=== PATIENT | female | born 1950 | race Caucasian/White ===

== ENCOUNTER → 2018-04-20 | Outpatient (CLI) | payer MEDICARE ==
[2018-04-20 11:21] LABS: Basophils % (A) 1 %; Eosinophils # (A) 0.2 k/uL (0-0.7); Eosinophils % (A) 2 %; HCT 41.4 % (34.0-46.0); HGB 12.8 gm/dL (11.4-16.0); Hypochromasia Slight; Lymphocytes % (A) 15 %; MCH 26.1 pg (25.0-35.0); MCV 84.4 fL (80.0-100.0); Mean Platelet Volume 6.6; Monocytes # (A) 0.3 k/uL (0-1.0); Monocytes % (A) 4 %; Neutrophils # (A) 4.9 k/uL (1.3-7.7); Neutrophils % (A) 76 %; Platelet Count 256 k/uL (150-450); RBC 4.91 m/uL (3.80-5.40); RDW 15.2 % (11.5-15.5); WBC 6.5 k/uL (3.8-10.6)
[2018-04-20 11:41] LABS: Albumin 3.8 g/dL (3.5-5.0); Calcium 9.2 mg/dL (8.4-10.2); Potassium 4.3 mmol/L (3.5-5.1); Total Bilirubin 0.6 mg/dL (0.2-1.3); Total Protein 6.5 g/dL (6.3-8.2)
[2018-04-20 11:59] LABS: Appearance,Urine Cloudy (Clear); Bacteria,Urine Few /hpf; Bilirubin,Urine Negative (Negative); Blood,Urine Small (Negative); Color,Urine Yellow; Glucose,Urine (UA) Negative (Negative); Ketones,Urine Negative (Negative); Leukocyte Esterase,Urine Large (Negative); Mucus,Urine Occasional /hpf; Nitrite,Urine Negative (Negative); Protein,Urine 1+ (Negative); RBC,Urine 3 /hpf (0-5); Specific Gravity,Urine 1.011 (1.001-1.035); Squamous Epithelial Cell,Urine 8 /hpf (0-4); Urobilinogen,Urine <2.0 mg/dL (<2.0); WBC,Urine 169 /hpf (0-5)
--- NOTE | 2018-04-20 14:10 | XR ---
EXAMINATION TYPE: XR chest 2V DATE OF EXAM: 04/20/2018 COMPARISON: NONE HISTORY: Presurgical, Z01.818, COPD and CHF TECHNIQUE: Frontal and lateral views of the chest are obtained. FINDINGS: Prominent lung volume could be indicative of COPD. Patient is rotated, no evident airspace disease, pneumothorax, or pleural effusion. Suspect prominent epicardial fat pad. Thoracic spondylos is noted. Aorta is dense. Cardiac mediastinal silhouette, pulmonary vascularity and jackelyn within ariella l limits accounting for technique. IMPRESSION: No acute cardiopulmonary process.
== END | disposition home or self-care (01) ==
LOC: LABPAT 10:20
PROVIDERS: ATTEND Urology
DX: Z01.818 Encounter for other preprocedural examination (principal); Z01.812 Encounter for preprocedural laboratory examination; N20.0 Calculus of kidney; R35.0 Frequency of micturition; I10 Essential (primary) hypertension; Z79.899 Other long term (current) drug therapy
CPT/HCPCS: 36415; 71046; 80053; 81001; 85025; 86850; 86900; 86901; 87086; 93005

== ENCOUNTER 2018-04-28 07:52 | Inpatient (IN) | payer MEDICARE ==
[2018-04-21 15:44] VITALS: BMI 68.2
--- NOTE | 2018-04-27 21:03 | P.GSHP ---
History of Present Illness H&P Date: 04/27/18 68 yo female with a staghorn calculus on the right and flank pain SHe comes for a right PCNL. The risks and compliations have been discussed. SHe comes for this procedure. Her urine cultures have been negative. - Constitutional Constitutional: Reports anorexia, Reports chronic headaches, Reports chronic pain Past Medical History Past Medical History: Asthma, COPD, GERD/Reflux, Hypertension, Myocardial Infarction ([place]), Osteoarthritis (OA) Additional Past Medical History / Comment(s): hx migraines, TIA 2004- no effects , hiatal hernia, recent diverticulitis, kidney stones, neuropathy xiomara legs, Last Myocardial Infarction Date:: 2008 History of Any Multi-Drug Resistant Organisms: MRSA Date of last positivie culture/infection: 2010 MDRO Source:: cysts on buttocks Past Surgical History: Appendectomy, Cholecystectomy, Heart Catheterization, Joint Replacement, Tubal Ligation Additional Past Surgical History / Comment(s): lithotripsy, cystoscopy, xiomara knee replacements Past Anesthesia/Blood Transfusion Reactions: Motion Sickness, Postoperative Nausea & Vomiting (PONV) Smoking Status: Former smoker - Past Family History Sister(s) Family Medical History: Cancer, Pulmonary Embolus Mother Family Medical History: Pulmonary Embolus Medications and Allergies Home Medications Medication Instructions Recorded Confirmed Type Acetaminophen [Tylenol Arthritis] 1,300 mg PO DIRECTED PRN 04/21/18 04/21/18 History Albuterol Sulfate [Proair 2 puff PO Q6HR PRN 04/21/18 04/21/18 History Respiclick] Aspirin [Adult Low Dose Aspirin EC] 81 mg PO BID 04/21/18 04/21/18 History Carboxymethyl/Gly/Poly80/Pf 2 dropper BOTH EYES BID 04/21/18 04/21/18 History [Refresh Optive Brian-3 Drops] Cholecalciferol [Vitamin D3] 3,000 unit PO DAILY 04/21/18 04/21/18 History Ibuprofen [Motrin] 600 mg PO Q8HR PRN 04/21/18 04/21/18 History Losartan [Cozaar] 25 mg PO DAILY 04/21/18 04/21/18 History Omeprazole [PriLOSEC] 20 mg PO AC-BRKFST 04/21/18 04/21/18 History Sertraline HCl [Zoloft] 25 mg PO DAILY 04/21/18 04/21/18 History Torsemide [Demadex] 20 - 40 mg PO DAILY PRN 04/21/18 04/21/18 History Vits A,C,E/Lutein/Minerals 1 each PO BID 04/21/18 04/21/18 History [Ocuvite with Lutein Tablet] Allergies Allergy/AdvReac Type Severity Reaction Status Date / Time adhesive tape Allergy Rash/Hives Verified 04/21/18 15:44 atorvastatin [From Lipitor] Allergy severe Verified 04/21/18 15:29 cramping in lower legs lisinopril Allergy Cough Verified 04/21/18 15:29 Surgical - Exam - General well developed, well nourished, obese - Eyes PERRL - ENT no hearing loss - Neck trachea midline - Respiratory normal expansion, normal respiratory effort - Cardiovascular Rhythm: regular - Abdomen Abdomen: soft, non tender - Integumentary no rash, no growths - Neurologic normal coordination, normal sensation - Musculoskeletal normal gait, normal posture - Psychiatric oriented to time, oriented to person, oriented to place, speech is normal, memory intact Results - Imaging CT scan - abdomen: report reviewed, image reviewed CT scan - pelvis: report reviewed, image reviewed Assessment and Plan Assessment: Impression: Painful right staghorn calculous Plan: Right PCNL w cystoscopy and ureteral catheter placement
[~2018-04-28 07:52] MED LIST: DEXAMETHASONE SOD PHOSPHATE 10 MG/ML 1 ML VIAL IV ONE; LACTATED RINGERS 1,000 ML IV SCH; LIDOCAINE 1% 20 ML VIAL (10MG/ML) FOR IV START INTRADERMA PRN; MIDAZOLAM 2 MG/2 ML VIAL IV PRN; ONDANSETRON 4 MG/2 ML VIAL IVP ONE; ceFAZolin IN SWFI 2 GM/20 ML SYRINGE IVP ONE; fentaNYL (PF) 50 MCG/ML 2 ML AMP IV PRN; metroNIDAZOLE-NS PMX 500 MG in SALINE 1 100ML.BAG IVPB ONE
--- NOTE | 2018-04-28 08:12 | XR ---
EXAMINATION TYPE: XR KUB DATE OF EXAM: 04/28/2018 COMPARISON: None INDICATION: Kidney stones right TECHNIQUE: Single view abdomen frontal supine FINDINGS: There is a normal bowel gas pattern. Psoas margins are normal. No organomegaly is present. Surgical clips in the right upper quadrant from prior cholecystectomy. The right kidney shadow appear s unremarkable. No suspicious calcifications are identified. IMPRESSION: 1. Unremarkable Abdomen
[2018-04-28] MEDS: LACTATED RINGERS 1,000 ML IV SCH ×2 (09:53→16:37)
[2018-04-28] MEDS ORDERED: NEOSTIGMINE 1 MG/ML 10 ML VIAL ONE (10:12)
[2018-04-28] MEDS ORDERED: LIDOCAINE 1% INJ 10MG/ML (20 ML MDV) ONE (10:12)
[2018-04-28] MEDS ORDERED: MIDAZOLAM 2 MG/2 ML VIAL ONE (10:12)
[2018-04-28] MEDS ORDERED: SUCCINYLCHOLINE CHLORIDE VIAL 200 MG/10 ML VIAL IV ONE (10:12)
[2018-04-28] MEDS ORDERED: PROPOFOL 10 MG/ML 20 ML VIAL IV ONE (10:12)
[2018-04-28] MEDS ORDERED: GENTAMICIN 40 MG/ML 2 ML VIAL ONE (10:12)
[2018-04-28] MEDS ORDERED: GLYCOPYRROLATE 0.2 MG/ML 2 ML VIAL ONE (10:12)
[2018-04-28] MEDS ORDERED: ROCURONIUM BROMIDE 10 MG/ML 10 ML VIAL IV ONE (10:12)
[2018-04-28] MEDS ORDERED: LACTATED RINGERS 1,000 ML IV ONE (12:19)
[2018-04-28] MEDS ORDERED: TORSEMIDE 20 MG TAB PO PRN (12:28)
[2018-04-28] MEDS ORDERED: NON-FORMULARY DRUG (Acetaminophen [Tylenol Arthritis] 1,300 MG) PO PRN (12:28)
[2018-04-28] MEDS ORDERED: ALBUTEROL NEBULIZED 2.5 MG/3 ML INHALATION PRN (12:28)
[2018-04-28] MEDS ORDERED: ACETAMINOPHEN TAB 325 MG TAB PO PRN (12:29)
[2018-04-28] MEDS ORDERED: ONDANSETRON 4 MG/2 ML VIAL IVP PRN (12:29)
[2018-04-28] MEDS ORDERED: NALOXONE 0.4 MG/ML 1 ML VIAL IV PRN (12:31)
[2018-04-28] MEDS ORDERED: KETOROLAC 30 MG/ML 1 ML VIAL IVP PRN (12:31)
--- NOTE | 2018-04-28 12:37 | P.OP ---
Date of Procedure: 04/28/18 Preoperative Diagnosis: Staghorn calculus right Postoperative Diagnosis: Same Procedure(s) Performed: Cystoscopy, placement of right occluding balloon catheter 5-Lebanese, percutaneous nephrostomy (Dr. Nugent) percutaneous nephrostolithotomy, large with ultrasound and laser lithotripsy, placement of 10-Lebanese J nephrostomy Anesthesia: SASHA Surgeon: Thanh Walden Estimated Blood Loss (ml): 100 Pathology: other (Stone) Condition: stable Disposition: PACU Indications for Procedure: The patient is 68. She is morbidly obese attending a #3. She has a full branch staghorn calculus in the right kidney. He comes for removal. Urine cultures have been negative. Description of Procedure: The patient is brought to the operating suite. She is given a successful general endotracheal anesthesia on the transport gurney. Rolls were placed on her hips and she's placed in a frog position. Cystoscopy is performed. It is limited due to her size. The right ureteral orifice is identified and intubated with a 5-Lebanese occluding balloon catheter. There is cystitis cystica on the trigone. A Albarado catheter-is placed, 16-Lebanese and secured to the ureteral catheter The patient is then placed on the operating table in a prone position with a very care to her extremities airways and size. She is prepped and draped sterilely. Dr. Nugent performed percutaneous access to the right lower pole calyx. We dilate the tract to 30-Lebanese. I irrigate the collecting system thoroughly. I then introduced the ultrasonic wand and tediously break up the very large renal pelvic stone with its branches. It is very soft. I then pass the flexible cystoscope and each calyx and either break the stones up with the 350 laser probe or move the stones into the renal pelvis and in then remove the stones with the rigid scope. I do intraoperative urography as well as look into the collecting system with the flexible scope and see no remaining stones. A 10-Lebanese J nephrostomy is placed over the working wire. The patient is awakened and returned recovery room in good condition. Blood loss is approximately 100 mL. She'll be placed in the hospital postoperatively.
--- NOTE | 2018-04-28 12:47 | FL ---
EXAMINATION TYPE: FL Perc Nephrostomy New Access DATE OF EXAM: 04/28/2018 COMPARISON: NONE HISTORY: Partial staghorn calculus. PROCEDURE: Maximal barrier technique was utilized. The skin overlying the right kidney was localized using fluo roscopy and the overlying skin prepped and draped. Lidocaine used for local anesthesia. Skin maggi w as made with a scalpel. Access was gained under fluoroscopy, following placement of a ureteral occlu mervat balloon by the referring clinician and instillation of air in the renal collecting system with a 21-gauge needle to the lower pole of the right kidney. A suitable posterior calyx was chosen. A 0 .018 inch wire was advanced. The access site was dilated and subsequently a sheath was advanced into the renal pelvis following dilation with balloon along the tract. Urine returned in the hub of the c atheter. The patient underwent nephrolithotomy by the referring clinician. The patient remained in stable condition without complication. The patient was discharged to observation. 2 minutes 38 seconds fluoroscopy time, 3 intraoperative C-arm images document the procedure IMPRESSION: STATUS POST NEPHROSTOMY PLACEMENT FOR NEPHROLITHOTOMY WITH FLUOROSCOPIC GUIDANCE. THIS PROCEDURE PER FORMED BY THE UNDERSIGNED.
[2018-04-28] MEDS: HYDROmorphone PCA 5 MG/25 ML SYRINGE IV PRN (17:39)
[2018-04-28] MEDS: LEVOFLOXACIN 500 MG TAB PO SCH (18:04)
[2018-04-28] MEDS: DEXTROSE 5%-0.45% NACL 1,000 ML IV SCH ×2 (21:06→21:19)
[2018-04-28] MEDS ORDERED: SODIUM CHLORIDE 0.9% 500 ML IV ONE (23:49)
[2018-04-29] MEDS: MAG HYDROX/AL HYDROX/SIMETH 30 ML CUP PO PRN ×2 (04:04→12:45)
--- NOTE | 2018-04-29 06:47 | P.PN ---
Subjective Progress Note Date: 04/29/18 The patient is in her first postoperative day from a right percutaneous nephrostolithotomy to a full branch staghorn calculus. She did well overnight. Vital signs are stable. She has a moderate amount of pain. The urine is still somewhat bloody. She states that she is not ready to be discharged home. She will need to eat, dressed, move herself and have pain control before she is ready for discharge home. Next 24 hours. I'll continue supportive care. Objective - Vital Signs Vital signs: Vital Signs Temp 98.1 F 04/28/18 23:39 Pulse 64 04/28/18 23:39 Resp 16 04/28/18 23:39 BP 118/67 04/28/18 23:39 Pulse Ox 96 04/28/18 23:39 Intake & Output 04/28/18 04/28/18 04/29/18 06:59 18:59 06:59 Intake Total 1600 2100 Output Total 175 1200 Balance 1425 900 Weight 174.633 kg Intake: IV 1600 Intake, IV Titration 2100 Amount Dextrose 5%-0.45% NaCl 1, 1600 000 ml @ 100 mls/hr IV . Q10H [facility] [place] Rx#:[id number] Sodium Chloride 0.9% 500 500 ml @ 999 mls/hr IV .Q31M ONE Rx#:[id number] Output: Drainage 250 Right Posterior Hip 250 Urine 75 950 2-way Urethral 200 Estimated Blood Loss 100 Other: Voiding Method Indwelling Catheter Indwelling Catheter
[2018-04-29] MEDS: LACTATED RINGERS 1,000 ML IV SCH (08:02)
[2018-04-29] MEDS: LOSARTAN 25 MG TAB PO SCH (08:07)
[2018-04-29] MEDS: PANTOPRAZOLE 40 MG TABLET PO SCH (08:07)
[2018-04-29] MEDS: LEVOFLOXACIN 500 MG TAB PO SCH (08:07)
[2018-04-29] MEDS: SERTRALINE 25 MG TAB PO SCH (09:32)
[2018-04-29] MEDS: DEXTROSE 5%-0.45% NACL 1,000 ML IV SCH ×2 (12:45→19:30)
[2018-04-29 14:37] VITALS: RESP 16
[2018-04-29] MEDS ORDERED: CALCIUM CARBONATE 500 MG CHEWABLE PO PRN (20:56)
[2018-04-30] MEDS: HYDROmorphone PCA 5 MG/25 ML SYRINGE IV PRN (00:08)
[2018-04-30] MEDS: MAG HYDROX/AL HYDROX/SIMETH 30 ML CUP PO PRN (03:41)
[2018-04-30] MEDS: DEXTROSE 5%-0.45% NACL 1,000 ML IV SCH (03:43)
--- NOTE | 2018-04-30 07:28 | P.DS ---
Providers Date of admission: 04/28/18 07:52 Attending physician: Thanh Walden Primary care physician: Calin Mckee [facility] Course: the patient was admitted for removal of a full branched staghorn calculous in the right kidney She underwent a pcnl right successfully SHe has had an uneventful post op course Her pain is controlled The urine is clearing SHe is voiding. SHe will be discharged home with her ntube SHe will fu thursday for removal of the tube The stone report is pending condition is good Patient Condition at Discharge: Good Plan - Discharge Summary Discharge Rx Participant: No New Discharge Prescriptions: New HYDROcodone/APAP 5-325MG [[place] 5-325] 1 tab PO Q4HR PRN #14 tab PRN Reason: Pain Control Levofloxacin [Levaquin] 500 mg PO DAILY 3 Days #7 tab No Action Vits A,C,E/Lutein/Minerals [Ocuvite with Lutein Tablet] 1 tab PO BID Carboxymethyl/Gly/Poly80/Pf [Refresh Optive Brian-3 Drops] 2 drops BOTH EYES BID Cholecalciferol [Vitamin D3] 3,000 unit PO DAILY Albuterol Sulfate [Proair Respiclick] 2 puff INHALATION RT-Q6H PRN PRN Reason: Shortness Of Breath Torsemide [Demadex] 20 - 40 mg PO DAILY PRN PRN Reason: fluid retention Sertraline HCl [Zoloft] 25 mg PO DAILY Omeprazole [PriLOSEC] 20 mg PO AC-BRKFST Losartan [Cozaar] 25 mg PO DAILY Aspirin [Adult Low Dose Aspirin EC] 81 mg PO BID Ibuprofen [Motrin] 600 mg PO Q8HR PRN PRN Reason: Pain Acetaminophen [Tylenol Arthritis] 1,300 mg PO TID PRN PRN Reason: Pain Discharge Medication List Acetaminophen [Tylenol Arthritis] 1,300 mg PO TID PRN 04/21/18 [History] Albuterol Sulfate [Proair Respiclick] 2 puff INHALATION RT-Q6H PRN 04/21/18 [ History] Aspirin [Adult Low Dose Aspirin EC] 81 mg PO BID 04/21/18 [History] Carboxymethyl/Gly/Poly80/Pf [Refresh Optive Brian-3 Drops] 2 drops BOTH EYES BID 04/21/18 [History] Cholecalciferol [Vitamin D3] 3,000 unit PO DAILY 04/21/18 [History] Ibuprofen [Motrin] 600 mg PO Q8HR PRN 04/21/18 [History] Losartan [Cozaar] 25 mg PO DAILY 04/21/18 [History] Omeprazole [PriLOSEC] 20 mg PO AC-BRKFST 04/21/18 [History] Sertraline HCl [Zoloft] 25 mg PO DAILY 04/21/18 [History] Torsemide [Demadex] 20 - 40 mg PO DAILY PRN 04/21/18 [History] Vits A,C,E/Lutein/Minerals [Ocuvite with Lutein Tablet] 1 tab PO BID 04/21/18 [ History] HYDROcodone/APAP 5-325MG [[place] 5-325] 1 tab PO Q4HR PRN #14 tab 04/30/18 [Rx] Levofloxacin [Levaquin] 500 mg PO DAILY 3 Days #7 tab 04/30/18 [Rx] Follow up Appointment(s)/Referral(s): Juan Jose [facility], [NON-STAFF] - Thanh Walden MD [STAFF PHYSICIAN] - 05/04/18 Activity/Diet/Wound Care/Special Instructions: Home w nephrostomy tube Discharge Disposition: HOME SELF-CARE
[2018-04-30] MEDS: SERTRALINE 25 MG TAB PO SCH (09:20)
[2018-04-30] MEDS: LOSARTAN 25 MG TAB PO SCH (09:20)
[2018-04-30] MEDS: PANTOPRAZOLE 40 MG TABLET PO SCH (09:20)
[2018-04-30] MEDS: LEVOFLOXACIN 500 MG TAB PO SCH (09:20)
[2018-04-30 11:17] VITALS: BP 120/67; PULSE 97; TEMP 98
== END 2018-04-30 11:50 | disposition home or self-care (01) | DRG 660 ==
LOC: 2ORMAIN 07:52 → 3SUR 14:54
PROVIDERS: ADMIT Urology; ATTEND Urology
PROC: 0TC03ZZ Extirpation of Matter from Right Kidney, Percutaneous Approach (ICD-10-PCS; principal; 2018-04-28 09:45)
DX: N20.0 Calculus of kidney (principal); Z68.44 Body mass index [BMI] 60.0-69.9, adult; E66.01 Morbid (severe) obesity due to excess calories; J44.9 Chronic obstructive pulmonary disease, unspecified; K21.9 Gastro-esophageal reflux disease without esophagitis; M19.90 Unspecified osteoarthritis, unspecified site; I11.0 Hypertensive heart disease with heart failure; I50.9 Heart failure, unspecified; Z96.653 Presence of artificial knee joint, bilateral; I25.2 Old myocardial infarction; Z86.14 Personal history of Methicillin resistant Staphylococcus aureus infection; Z79.82 Long term (current) use of aspirin; Z79.899 Other long term (current) drug therapy; Z86.73 Personal history of transient ischemic attack (TIA), and cerebral infarction without residual deficits; Z87.891 Personal history of nicotine dependence; Z90.49 Acquired absence of other specified parts of digestive tract; Z98.51 Tubal ligation status; Z88.8 Allergy status to other drugs, medicaments and biological substances
CPT/HCPCS: 50432; 74018; 82365; 86850; 86900; 86901; 94760; 94762

== ENCOUNTER → 2022-05-23 | Outpatient (CLI) | payer MEDICARE ==
--- NOTE | 2022-05-23 09:36 | CT ---
EXAMINATION TYPE: CT abdomen pelvis wo con DATE OF EXAM: 05/23/2022 COMPARISON: Outside study from 03/28/2018 HISTORY: Right sided kidney stones CT DLP: 2943.8 mGycm Examination of the solid and hollow viscera is limited given the lack of contrast. FINDINGS: LUNG BASES: No evidence for nodule. No evidence for infiltrate. Small hiatal hernia noted. LIVER/GB: The gallbladder is surgically absent. No space-occupying hepatic lesion. PANCREAS: No pancreatic mass identified. No inflammatory process seen. SPLEEN: No evidence for splenomegaly. No intrasplenic lesions seen. ADRENALS: No adrenal nodules identified. No evidence for thickening. KIDNEYS: Right-sided staghorn calculus seen previously is smaller in size although lower pole compone nt persists and measures approximately 2.3 cm x 1.6 cm. Additional calculus is seen within the right upper pole measuring 1.7 cm in greatest dimension. Linear right lower pole calculus also measures fidencio roximately 1.8 cm in length. Additional 1.1 cm ovoid calcification lower pole right kidney. The left kidney demonstrates 3 mm nonobstructing calculus lower pole left kidney. There is no evidence for fra nk hydronephrosis. Cyst upper pole right kidney measures 3.2 cm. Small parapelvic cysts noted. BOWEL: Appendix has a normal appearance. No evidence of bowel obstruction. No inflammatory process. Lymph nodes: No evidence for adenopathy greater than 1 cm. Abdominal aorta: Atheromatous changes seen. No evidence for aneurysm. Genital organs: No significant abnormality. Other: No significant abnormality. IMPRESSION: 1. Right-sided nephrolithiasis as discussed with the right-sided staghorn calculus seen previously im proved relative to the prior examination.
== END | disposition home or self-care (01) ==
LOC: RADCTMAIN 08:17
PROVIDERS: ATTEND Urology
DX: N20.0 Calculus of kidney (principal)
CPT/HCPCS: 74176

== ENCOUNTER → 2022-06-17 | Outpatient (CLI) | payer MEDICARE ==
[2022-06-17 14:20] LABS: Basophils # (A) 0.05 X 10*3/uL (0.00-0.10); Basophils % (A) 0.7 %; Eosinophils # (A) 0.19 X 10*3/uL (0.04-0.35); Eosinophils % (A) 2.8 %; HCT 37.4 % (37.2-46.3); HGB 12.1 g/dL (12.0-15.0); Immature Grans, Automated 0.4 %; Lymphocytes # (A) 1.16 X 10*3/uL (0.90-5.00); MCH 27.1 pg (27.0-32.0); MCHC 32.4 g/dL (32.0-37.0); MCV 83.9 fL (80.0-97.0); Mean Platelet Volume 9.8 fL (9.5-12.2); Monocytes # (A) 0.41 X 10*3/uL (0.20-1.00); NRBC Per 100 WBC 0 /100 WBCS (0.0-0.0); Neutrophils # (A) 4.97 X 10*3/uL (1.80-7.70); Neutrophils % (A) 73.1 %; Platelet Count 254 X 10*3/uL (140-440); RBC 4.46 X 10*6/uL (4.10-5.20); RDW 14.7 % (11.5-14.5); WBC 6.81 X 10*3/uL (4.50-10.00)
[2022-06-17 14:25] LABS: African American GFR (CKD) 47.5 (60.0-200.0); Albumin 3.9 g/dL (3.8-4.9); Albumin/Globulin Ratio 1.26 (1.60-3.17); Anion Gap 14.5 mmol/L (10.00-18.00); BUN/Creat Ratio 15.46 Ratio (12.00-20.00); Blood Urea Nitrogen 20.1 mg/dL (9.0-27.0); Calcium 9.5 mg/dL (8.7-10.3); Carbon Dioxide 26.5 mmol/L (20.0-27.5); Globulin 3.1 g/dL (1.6-3.3); Potassium 3.6 mmol/L (3.5-5.5); Total Bilirubin 0.4 mg/dL (0.30-1.20)
[2022-06-17 15:03] LABS: Bacteria,Urine Trace /HPF (None Seen)
[2022-06-17 15:04] LABS: Appearance,Urine Turbid (Clear); Bilirubin,Urine Negative (Negative); Blood,Urine Large (Negative); Color,Urine Yellow (Yellow); Ketones,Urine Negative (Negative); Nitrite,Urine Negative (Negative); Specific Gravity,Urine 1.021 (1.001-1.030); Urobilinogen,Urine 0.2 (0.2,1.0)
== END | disposition home or self-care (01) ==
LOC: LABPAT 10:08
PROVIDERS: ATTEND Urology
DX: Z01.812 Encounter for preprocedural laboratory examination (principal); N20.0 Calculus of kidney; R31.29 Other microscopic hematuria
CPT/HCPCS: 80053; 81001; 85025; 87086

== ENCOUNTER 2022-06-25 07:10 | Day surgery (SDC) | payer MEDICARE ==
--- NOTE | 2022-06-24 18:11 | P.GSHP ---
History of Present Illness H&P Date: 06/24/22 72 yo femae with ahistory of recurrent proteus uti. She was found to have a large volume of stones in her right kidenye[>3cm]. SHe comes for a right pcnl to remove the infected stones. the risks and alternatives have been discussed. - Constitutional Constitutional: Denies chills, Denies fever - EENT Eyes: denies blurred vision, denies pain Ears, nose, mouth and throat: Denies headache, Denies sore throat - Cardiovascular Cardiovascular: Denies chest pain, Denies shortness of breath - Respiratory Respiratory: Denies cough, Denies 7 - Gastrointestinal Gastrointestinal: Denies abdominal pain, Denies diarrhea, Denies nausea, Denies vomiting - Genitourinary (Female) Genitourinary: Denies dysuria, Denies hematuria - Genitourinary (Male) Genitourinary: Denies dysuria, Denies hematuria - Musculoskeletal Musculoskeletal: Denies myalgias - Integumentary Integumentary: Denies pruritus, Denies rash - Neurological Neurological: Denies numbness, Denies weakness - Psychiatric Psychiatric: Denies anxiety, Denies depression - Endocrine Endocrine: Denies fatigue, Denies weight change Past Medical History Past Medical History: Asthma, COPD, GERD/Reflux, Hypertension, Myocardial Infarction ([place]), Osteoarthritis ([place]) Additional Past Medical History / Comment(s): hx migraines, TIA 2004- no effects, hiatal hernia, hx of diverticulitis, kidney stones, neuropathy xiomara legs, edema to bilateral lower legs, pt states she has scabbed sores to bilateral lower legs front and back. Last Myocardial Infarction Date:: 2008 History of Any Multi-Drug Resistant Organisms: MRSA Date of last positivie culture/infection: 2010 MDRO Source:: cysts on buttocks Past Surgical History: Appendectomy, Cholecystectomy, Heart Catheterization, Joint Replacement, Tubal Ligation Additional Past Surgical History / Comment(s): lithotripsy, cystoscopy, xiomara knee replacements, ablation of veins to left leg Past Anesthesia/Blood Transfusion Reactions: Motion Sickness, Postoperative Nausea & Vomiting (PONV) Smoking Status: Former smoker - Past Family History Sister(s) Family Medical History: Cancer, Pulmonary Embolus Additional Family Medical History / Comment(s): non hodgkins lymphoma Mother Family Medical History: Cancer, Pulmonary Embolus Additional Family Medical History / Comment(s): leukemia Father Additional Family Medical History / Comment(s): cirrohsis Medications and Allergies Home Medications Medication Instructions Recorded Confirmed Type Acetaminophen [Tylenol Arthritis] 1,300 mg PO TID PRN 04/21/18 06/23/22 History Albuterol Sulfate [Proair 2 puff INHALATION RT-Q6H PRN 04/21/18 06/23/22 History Respiclick] Aspirin [Adult Low Dose Aspirin EC] 81 mg PO BID 04/21/18 06/23/22 History Carboxymethyl/Gly/Poly80/Pf 2 drops BOTH EYES BID 04/21/18 06/23/22 History [Refresh Optive Brian-3 Drops] Cholecalciferol [Vitamin D3] 3,000 unit PO DAILY 04/21/18 06/23/22 History Ibuprofen [Motrin] 600 mg PO Q8HR PRN 04/21/18 06/23/22 History Losartan [Cozaar] 25 mg PO DAILY 04/21/18 06/23/22 History Omeprazole [PriLOSEC] 20 mg PO AC-BRKFST 04/21/18 06/23/22 History Sertraline HCl [Zoloft] 25 mg PO DAILY 04/21/18 06/23/22 History Torsemide [Demadex] 20 - 40 mg PO DAILY PRN 04/21/18 06/23/22 History Vits A,C,E/Lutein/Minerals 1 tab PO BID 04/21/18 06/23/22 History [Ocuvite with Lutein Tablet] Acetaminophen with Codeine 1 tab PO Q6H PRN 06/23/22 06/23/22 History [Acetaminophen-Cod #3 Tablet] Sulfamethox-Tmp 800-160Mg [Bactrim 1 tab PO Q12HR 06/23/22 06/23/22 History DS 800-160 mg] Allergies Allergy/AdvReac Type Severity Reaction Status Date / Time adhesive tape Allergy Rash/Hives Verified 06/23/22 09:03 atorvastatin [From Lipitor] Allergy severe Verified 06/23/22 09:03 cramping in lower legs lisinopril Allergy Cough Verified 06/23/22 09:03 Surgical - Exam - General well developed, well nourished, no distress - Eyes normal ocular movement, no icteric - ENT no hearing loss, no congestion - Neck no masses, trachea midline - Respiratory normal respiratory effort, clear to auscultation - Abdomen Abdomen: soft, non tender, no guarding, no rigid, no rebound - Integumentary no rash, no abnormal pigmentation - Neurologic no disoriented, no combative - Psychiatric oriented to time, oriented to person, oriented to place, speech is normal, memory intact Results - Imaging CT scan - abdomen: report reviewed, image reviewed CT scan - pelvis: report reviewed, image reviewed Assessment and Plan Assessment: Impression: infected large right renal calculi Plan: Right PCNL
[~2022-06-25 07:10] MED LIST changes: +AMPICILLIN 1,000 MG in SODIUM CHLORIDE 0.9% 50 ML IVPB PRN; -DEXAMETHASONE SOD PHOSPHATE 10 MG/ML 1 ML VIAL IV ONE; +DEXAMETHASONE SOD PHOSPHATE 4 MG/ML 1 ML VIAL IV ONE; +GENTAMICIN 160 MG in SODIUM CHLORIDE 0.9% 100 ML IVPB PRN; +HYDROmorphone 0.5 MG/0.5 ML SYRINGE IVP PRN; -LACTATED RINGERS 1,000 ML IV SCH; -LIDOCAINE 1% 20 ML VIAL (10MG/ML) FOR IV START INTRADERMA PRN; -MIDAZOLAM 2 MG/2 ML VIAL IV PRN; -ceFAZolin IN SWFI 2 GM/20 ML SYRINGE IVP ONE; -fentaNYL (PF) 50 MCG/ML 2 ML AMP IV PRN; -metroNIDAZOLE-NS PMX 500 MG in SALINE 1 100ML.BAG IVPB ONE
--- NOTE | 2022-06-25 07:38 | XR ---
EXAMINATION TYPE: XR KUB DATE OF EXAM: 06/25/2022 COMPARISON: 04/28/2018r INDICATION: Kidney stones TECHNIQUE: Single view abdomen supine position FINDINGS: There is a normal bowel gas pattern. Psoas margins are normal. No organomegaly is present. There is a 3.0 x 1.9 cm right renal stone. Cholecystectomy clips in the right upper quadrant. IMPRESSION: 1. Right renal stone
[2022-06-25] MEDS: LACTATED RINGERS 1,000 ML IV SCH (08:42)
[2022-06-25] MEDS ORDERED: PHENYLEPHRINE-0.9% NACL SYG 1,000 MCG/10 ML SYRINGE ONE (09:15)
[2022-06-25] MEDS ORDERED: NEOSTIGMINE 1 MG/ML 10 ML VIAL ONE (09:15)
[2022-06-25] MEDS ORDERED: LIDOCAINE 2% INJ 20 MG/ML (2 ML VIAL) ONE (09:15)
[2022-06-25] MEDS ORDERED: GLYCOPYRROLATE 0.2 MG/ML 2 ML VIAL ONE (09:15)
[2022-06-25] MEDS ORDERED: ROCURONIUM 10 MG/ML (5 ML VIAL) IV ONE (09:15)
[2022-06-25] MEDS ORDERED: fentaNYL (PF) 50 MCG/ML 2 ML AMP ONE (09:15)
[2022-06-25] MEDS ORDERED: SUCCINYLCHOLINE CHLORIDE 200 MG/10 ML VIAL IV ONE (09:15)
[2022-06-25] MEDS ORDERED: PROPOFOL 10 MG/ML 20 ML VIAL IV ONE (09:15)
[2022-06-25] MEDS ORDERED: IOPAMIDOL-370 50ML BTL MISCELLANE ONE (10:11)
[2022-06-25] MEDS ORDERED: ALBUTEROL NEBULIZED 2.5 MG/3 ML INHALATION PRN (12:05)
[2022-06-25] MEDS ORDERED: MAG HYDROX/AL HYDROX/SIMETH 30 ML CUP PO PRN (12:07)
[2022-06-25] MEDS ORDERED: ONDANSETRON 4 MG/2 ML VIAL IVP PRN (12:07)
[2022-06-25] MEDS ORDERED: ACETAMINOPHEN TAB 325 MG TAB PO PRN (12:07)
[2022-06-25] MEDS ORDERED: NALOXONE 0.4 MG/ML 1 ML VIAL IV PRN (12:08)
--- NOTE | 2022-06-25 12:14 | P.OP ---
Date of Procedure: 06/25/22 Preoperative Diagnosis: Infected right renal calculi Postoperative Diagnosis: Same Procedure(s) Performed: Cystoscopy, placement of occluding balloon catheter right, percutaneous nephrostomy (Dr. Nugent) percutaneous nephrostolithotomy with ultrasound and l aser lithotripsy. Placement of 10-Jordanian J nephrostomy catheters 2 Anesthesia: SASHA Surgeon: Thanh Walden Estimated Blood Loss (ml): 200 Pathology: other (Stone) Condition: stable Disposition: PACU Indications for Procedure: Patient is a 72-year-old, morbidly obese female with multiple large stones in her right kidney and recurrent Proteus urinary infection. She comes for percutaneous nephrostolithotomy to clear the stones and hopefully rid her of the infection. Risks, complications, alternatives have been discussed Description of Procedure: Patient brought to the operating suite. Given a general anesthesia on the transport gurney. She's placed in a frog position with a sterile prep and drape. With some difficulty cystoscopy with a Foroblique lenses performed, the right ureteral orifice is identified and intubated with a 5-Jordanian occluding balloon catheter. After the cystoscope was removed a 16-Jordanian Albarado catheters placed and secured to the ureteral catheter The patient is placed in a prone position with care to airways and extremities. This is difficult I have to be extremely careful due to her large size. After adequate control of airways extremities and positioning sterile prep and drape was administered. Dr. Nugent performed percutaneous nephrostomy to a right lower pole calyx. The track is then dilated to 30-Jordanian I then introduced the rigid nephroscope clear the clot and identify several renal stones that are removed with grasping forceps. The patient has a very complicated intrarenal anatomy and it requires access the multiple stones. I'm able to pass a scope into the right lower pole calyx and with laser lithotripsy break the large stone into smaller pieces and then basket it out. I then pass the flexible nephroscope and the flexible ureteroscope in an upper pole calyx and attempted break the stone can only do so partially due to the angle and the small intrarenal anatomy. I therefore will have to place another percutaneous tube in the kidney to access these large stones (greater than 2 cm) retracing I again performed percutaneous nephrostomy to the upper pole calyx. This is done in identical fashion to the lower pole calyx. The track was dilated to 30-Jordanian and introduced the rigid sheath into the collecting system. With ultrasound I'm able to break the stone and a smaller fragments and grasp it out. Throughout the collecting system and see no remaining stone. A 10 J nephrostomy tubes were placed in the right upper pole calyx in the renal pelvis. This is secured to the skin. Then the procedure the patient is awake and returned recovery room good condition. Blood loss is about 200 mL. She tolerated procedure well be placed in the hospital postoperatively.
[2022-06-25] MEDS ORDERED: HYDROmorphone 0.5 MG/0.5 ML SYRINGE IVP ONE ×2 (12:38→13:48)
[2022-06-25] MEDS ORDERED: LACTATED RINGERS 1,000 ML IV ONE (12:54)
[2022-06-25] MEDS ORDERED: HYDROmorphone PCA 10 MG/50 ML BAG IV PRN (14:00)
[2022-06-25] MEDS: DEXTROSE 5%-0.45% NACL 1,000 ML IV SCH ×2 (17:36→22:46)
[2022-06-25] MEDS: SULFAMETHOX-TMP 800-160MG 1 EACH TAB PO SCH (22:47)
[2022-06-26] MEDS: LACTATED RINGERS 1,000 ML IV SCH (00:57)
[2022-06-26] MEDS: DEXTROSE 5%-0.45% NACL 1,000 ML IV SCH ×2 (03:32→16:31)
--- NOTE | 2022-06-26 08:52 | FL ---
EXAMINATION TYPE: FL Perc Nephrostomy New Access DATE OF EXAM: 06/25/2022 COMPARISON: CT 05/23/2022 HISTORY: Hydronephrosis, ureteral obstruction with staghorn calculus. PROCEDURE: Maximal barrier technique was utilized, hand hygiene obtained with soap and water and alcohol-based h and rub. The skin overlying the left kidney was localized using fluoroscopy and the overlying skin p repped and draped. Skin maggi was made with a scalpel. Access was gained under fluoroscopy, following placement of a ureteral occlusion balloon by the referring clinician and instillation of air in the renal collecting system with a 21-gauge needle to the right kidney. A suitable posterior calyx was c hosen at the lower pole. A 0.018 inch wire was advanced. The access site was dilated , access site was upsized, safety wire deployed and subsequently a sheath was advanced into the renal pelvis follo wing dilation with balloon along the tract. The patient underwent nephrolithotomy by the referring cl inician. The patient remained in stable condition without complication. The patient was discharged to observation in the care of anesthesia. , Additional puncture was performed by the referring chepe polanco 4 minutes 11 seconds fluoroscopy time supplied, 15 intraoperative C-arm images document the procedure IMPRESSION: STATUS POST NEPHROSTOMY PLACEMENT FOR NEPHROLITHOTOMY WITH FLUOROSCOPIC GUIDANCE. THIS PROCEDURE PER FORMED BY THE UNDERSIGNED.
[2022-06-26] MEDS: LOSARTAN 25 MG TAB PO SCH (10:59)
[2022-06-26] MEDS: SERTRALINE 25 MG TAB PO SCH (11:00)
[2022-06-26] MEDS: SULFAMETHOX-TMP 800-160MG 1 EACH TAB PO SCH ×2 (11:01→20:33)
[2022-06-26] MEDS: PANTOPRAZOLE 40 MG TABLET PO SCH (11:01)
[2022-06-26] MEDS: HYDROcodone/APAP 5-325MG 1 EACH TAB PO PRN ×3 (11:49→20:33)
--- NOTE | 2022-06-26 16:22 | P.PN ---
Subjective Progress Note Date: 06/26/22 Principal diagnosis: Infected right renal calculi The patient is POD #1 from a cystoscopy, placement of occluding balloon catheter right, percutaneous nephrostomy (Dr. Nugent) percutaneous nephrostolithotomy with ultrasound and laser lithotripsy. Placement of 10-Occitan J nephrostomy catheters [address] Walden. The patient was seen this morning sitting up in the chair. She complained of nausea and some mild left lower quadrant abdominal pain. Orders placed to discontinue FISHER POUND NET OR TRAP, added Steens prn pain, and to remove the rios catheter. Nephrostomy tube sites CDI and are draining clear yellow urine. Followed up with the patient later in the afternoon. She stated she was still not feeling well. She had a low grade fever and was still slightly nauseated. Her pain is well controlled with Steens. She states she is not ready to be discharged home. She has been able to urinate post rios removal. Urine was slightly pink. Objective - Vital Signs Vital signs: Vital Signs Temp 99.5 F 06/26/22 15:59 Pulse 80 06/26/22 12:01 Resp 16 06/26/22 12:01 BP 109/58 06/26/22 12:01 Pulse Ox 94 L 06/26/22 12:01 FiO2 Intake & Output 06/25/22 06/26/22 06/26/22 18:59 06:59 18:59 Intake Total 1804 1200 Output Total 400 1125 650 Balance 1404 75 -650 Weight 176.5 kg Intake: IV 1804 Intake, IV Titration 1200 Amount Dextrose 5%-0.45% NaCl 1, 1200 000 ml @ 100 mls/hr IV . Q10H [facility] Rx#:[id number] Output: Drainage 500 325 Right Back #2 425 325 Right back #1 75 Urine 200 625 325 Uretheral (Rios) 325 Estimated Blood Loss 200 Other: Voiding Method Indwelling Catheter Indwelling Catheter Toilet # Voids 1 - Exam General: Well developed, well nourished. No acute distress. HEENT: Head is atraumatic, normocephalic. Mucus membranes moist. Lungs: Respirations even and nonlabored. Abdomen/GI: Soft, obese..No guarding, rigidity, + left lower abdominal tenderness. : Rios draining clear yellow urine. Right nephrostomy tubes x 2 Musculoskeletal/ Extremities: BERNSTEIN, no joint deformity or swelling. No gross atrophy. + generalized weakness Skin: Warm and dry Neurologic: Awake, alert and oriented times 3. CN II-XII grossly intact. No focal deficits. Psychiatric: Appropriate mood and affect. 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
[2022-06-27] MEDS: HYDROcodone/APAP 5-325MG 1 EACH TAB PO PRN ×2 (01:34→08:34)
[2022-06-27] MEDS: DEXTROSE 5%-0.45% NACL 1,000 ML IV SCH (01:36)
[2022-06-27] MEDS: LACTATED RINGERS 1,000 ML IV SCH (07:30)
[2022-06-27] MEDS: SULFAMETHOX-TMP 800-160MG 1 EACH TAB PO SCH (08:21)
[2022-06-27] MEDS: PANTOPRAZOLE 40 MG TABLET PO SCH (08:21)
[2022-06-27] MEDS: LOSARTAN 25 MG TAB PO SCH (08:21)
[2022-06-27] MEDS: SERTRALINE 25 MG TAB PO SCH (08:21)
--- NOTE | 2022-06-27 09:09 | P.DS ---
Providers Expected date of discharge: 06/27/22 Attending physician: Thanh Walden Primary care physician: Calin Zamora - Discharge Diagnosis(es) (1) Right kidney stone Current Visit: No Status: Acute Hospital Course: The patients/p cystoscopy, placement of occluding balloon catheter right, percutaneous nephrostomy (Dr. Nugent) percutaneous nephrostolithotomy with ultrasound and laser lithotripsy. Placement of 10-Vietnamese J nephrostomy catheters [address] Walden. On post-op day #1 she complained of nausea and some mild left lower quadrant abdominal pain. 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 Rios catheter was removed. Nephrostomy tube sites CDI and were draining blood tinged urine. Followed up with the patient later in the afternoon. She stated she was still not feeling well. She had a low grade fever and was still slightly nauseated. She had adequate pain relief with [place]. She stated she was not ready to be discharged home. She has been able to urinate post rios removal. Urine was slightly pink. POD#2 The patient was seen sitting up in the chair. She states she is feeling much better. She has been afebrile since yesterday afternoon and her nausea has resolved. She is voiding without difficulty and reports some hematuria still. Dressing covering right nephrostomy tube sites with shadowed with old blood. Nursing staff instructed to change dressing before discharge today. Patient was discharged with a prescription for [place] prn pain, and Bactrim-DS. She has a follow up appointment already scheduled in the office for 06/30/22. Impression and plan of care have been directed as dictated by the signing physician. Elizabeth Lowery nurse practitioner acting as scribe for signing physician. Elizabeth Lowery [facility] Palliative Care/Urology Spectralink [id number] Email: [email or web address] Patient Condition at Discharge: Good Plan - Discharge Summary Discharge Rx Participant: No New Discharge Prescriptions: No Action Vits A,C,E/Lutein/Minerals [Ocuvite with Lutein Tablet] 1 tab PO BID Carboxymethyl/Gly/Poly80/Pf [Refresh Optive Brian-3 Drops] 2 drops BOTH EYES BID Cholecalciferol [Vitamin D3] 3,000 unit PO DAILY Albuterol Sulfate [Proair Respiclick] 2 puff INHALATION RT-Q6H PRN PRN Reason: Shortness Of Breath Torsemide [Demadex] 20 - 40 mg PO DAILY PRN PRN Reason: fluid retention Sertraline HCl [Zoloft] 25 mg PO DAILY Omeprazole [PriLOSEC] 20 mg PO AC-BRKFST Losartan [Cozaar] 25 mg PO DAILY Aspirin [Adult Low Dose Aspirin EC] 81 mg PO BID Ibuprofen [Motrin] 600 mg PO Q8HR PRN PRN Reason: Pain Acetaminophen [Tylenol Arthritis] 1,300 mg PO TID PRN PRN Reason: Pain Sulfamethox-Tmp 800-160Mg [Bactrim DS 800-160 mg] 1 tab PO Q12HR Acetaminophen with Codeine [Acetaminophen-Cod #3 Tablet] 1 tab PO Q6H PRN PRN Reason: Pain Discharge Medication List Acetaminophen [Tylenol Arthritis] 1,300 mg PO TID PRN 04/21/18 [History] Albuterol Sulfate [Proair Respiclick] 2 puff INHALATION RT-Q6H PRN 04/21/18 [History] Aspirin [Adult Low Dose Aspirin EC] 81 mg PO BID 04/21/18 [History] Carboxymethyl/Gly/Poly80/Pf [Refresh Optive Brian-3 Drops] 2 drops BOTH EYES BID 04/21/18 [History] Cholecalciferol [Vitamin D3] 3,000 unit PO DAILY 04/21/18 [History] Ibuprofen [Motrin] 600 mg PO Q8HR PRN 04/21/18 [History] Losartan [Cozaar] 25 mg PO DAILY 04/21/18 [History] Omeprazole [PriLOSEC] 20 mg PO AC-BRKFST 04/21/18 [History] Sertraline HCl [Zoloft] 25 mg PO DAILY 04/21/18 [History] Torsemide [Demadex] 20 - 40 mg PO DAILY PRN 04/21/18 [History] Vits A,C,E/Lutein/Minerals [Ocuvite with Lutein Tablet] 1 tab PO BID 04/21/18 [History] Acetaminophen with Codeine [Acetaminophen-Cod #3 Tablet] 1 tab PO Q6H PRN 06/23/22 [History] Sulfamethox-Tmp 800-160Mg [Bactrim DS 800-160 mg] 1 tab PO Q12HR 06/23/22 [History] Follow up Appointment(s)/Referral(s): Thanh Walden MD [STAFF PHYSICIAN] - 07/01/22
[2022-06-27 11:48] VITALS: BP 102/60; PULSE 78; RESP 16; TEMP 98.7
== END 2022-06-27 13:17 | disposition home or self-care (01) ==
LOC: OR 07:10 → 5NMEDONC 12:20 → OR 06-27 13:17
PROVIDERS: ATTEND Urology
DX: N20.0 Calculus of kidney (principal); J44.9 Chronic obstructive pulmonary disease, unspecified; K21.9 Gastro-esophageal reflux disease without esophagitis; I10 Essential (primary) hypertension; I25.2 Old myocardial infarction; M19.90 Unspecified osteoarthritis, unspecified site; K44.9 Diaphragmatic hernia without obstruction or gangrene; G62.9 Polyneuropathy, unspecified; K91.0 Vomiting following gastrointestinal surgery; Z90.49 Acquired absence of other specified parts of digestive tract; Z98.890 Other specified postprocedural states; Z95.5 Presence of coronary angioplasty implant and graft; Z98.51 Tubal ligation status; Z86.73 Personal history of transient ischemic attack (TIA), and cerebral infarction without residual deficits; Z86.69 Personal history of other diseases of the nervous system and sense organs; Z87.891 Personal history of nicotine dependence
CPT/HCPCS: 50081; 86900; 86901; 86850; 82365; 50432; 74018; C1769 ×4; C2628; C1894; C1729; J0330; J1100; J2710; J2405 ×2; J3010; J1580; J0290; J2370; J2704; J1170 ×2; Q9967; J2001

== ENCOUNTER → 2023-02-23 | Outpatient (CLI) | payer MEDICARE ==
[2023-02-23 13:08] LABS: Basophils % (A) 1 %; Eosinophils # (A) 0.2 k/uL (0-0.7); Eosinophils % (A) 3 %; HGB 12.5 gm/dL (11.4-16.0); Lymphocytes % (A) 14 %; MCH 27.8 pg (25.0-35.0); MCV 86.8 fL (80.0-100.0); Mean Platelet Volume 7.4; Monocytes # (A) 0.3 k/uL (0-1.0); Monocytes % (A) 4 %; Neutrophils # (A) 5.6 k/uL (1.3-7.7); Neutrophils % (A) 78 %; Platelet Count 262 k/uL (150-450); RDW 15.4 % (11.5-15.5); WBC 7.2 k/uL (3.8-10.6)
[2023-02-23 13:20] LABS: African American GFR (CKD) 44 (>60 ml/min/1.73 sqM); Anion Gap 9 mmol/L; Blood Urea Nitrogen 23 mg/dL (7-17); Calcium 9.3 mg/dL (8.4-10.2); Carbon Dioxide 26 mmol/L (22-30); Chloride 104 mmol/L (98-107); Glucose 91 mg/dL (74-99); Non-African American GFR(CKD) 38 (>60 ml/min/1.73 sqM); Potassium 4.3 mmol/L (3.5-5.1); Sodium 139 mmol/L (137-145)
[2023-02-23 13:40] LABS: Appearance,Urine Cloudy (Clear); Bilirubin,Urine Negative (Negative); Blood,Urine Small (Negative); Budding Yeast,Urine Rare /hpf; Color,Urine Yellow; Glucose,Urine (UA) Negative (Negative); Ketones,Urine Negative (Negative); Leukocyte Esterase,Urine Large (Negative); Mucus,Urine Rare /hpf; Nitrite,Urine Negative (Negative); Protein,Urine Trace (Negative); RBC,Urine 9 /hpf (0-5); Squamous Epithelial Cell,Urine 9 /hpf (0-4); Urobilinogen,Urine <2.0 mg/dL (<2.0); WBC,Urine >182 /hpf (0-5)
--- NOTE | 2023-02-23 18:22 | CT ---
EXAMINATION TYPE: CT abdomen wo con DATE OF EXAM: 02/23/2023 COMPARISON: 05/23/2022 INDICATION: renal mass DLP: 1894.7 mGycm, Automated exposure control for dose reduction was used. CONTRAST: 0 mL of Isovue 370. Study performed with Oral Contrast TECHNIQUE: Axial images were obtained from above the diaphragm to the pubic rami in the axial plane a t 5 mm thick sections. Reconstructed images are reviewed on the computer in the coronal plane. FINDINGS: Limited CT sections are obtained the lung bases. Lung bases are clear. CT ABDOMEN: Liver: Normal Spleen: Normal Pancreas: Normal Adrenal glands: The adrenal glands are normal. Gallbladder: Surgically Absent Kidneys: No masses are evident. There is mild superior hydronephrosis. No cysts are present. There a re calcifications in the bilateral kidneys. Aorta: Vascular calcification is within the aorta. Inferior vena cava: Normal. Loops of bowel within the abdomen and pelvis are normal. There are loops of bowel which are incom pletely distended or lack oral contrast limiting their evaluation. IMPRESSIONS: 1. Bilateral nonobstructing renal stones. 2. There is some mild right hydronephrosis. An obstructing etiology is not identified. Findings are s table from comparison.
== END | disposition home or self-care (01) ==
LOC: RADCTMAIN 12:27
PROVIDERS: ATTEND Urology
DX: D41.01 Neoplasm of uncertain behavior of right kidney (principal); N13.2 Hydronephrosis with renal and ureteral calculous obstruction; N28.89 Other specified disorders of kidney and ureter
CPT/HCPCS: 36415; 74150; 80048; 81001; 85025; 87086

== ENCOUNTER 2023-03-11 05:54 | Day surgery (SDC) | payer MEDICARE ==
[2023-03-06 09:41] VITALS: BMI 68.5
--- NOTE | 2023-03-10 21:50 | P.GSHP ---
History of Present Illness H&P Date: 03/10/23 73 yo female with r uti secondary to proteus. She has right renal stones. She comes for a right ureteroscopy with laser lithotripsy to rid her of the stones. She may need a stent. the risks and complications have been discussed and accepted. - Constitutional Constitutional: Denies chills, Denies fever - EENT Eyes: denies blurred vision, denies pain Ears, nose, mouth and throat: Denies headache, Denies sore throat - Cardiovascular Cardiovascular: Denies chest pain, Denies shortness of breath - Respiratory Respiratory: Denies cough, Denies 7 - Gastrointestinal Gastrointestinal: Denies abdominal pain, Denies diarrhea, Denies nausea, Denies vomiting - Genitourinary (Female) Genitourinary: Denies dysuria, Denies hematuria - Genitourinary (Male) Genitourinary: Denies dysuria, Denies hematuria - Musculoskeletal Musculoskeletal: Denies myalgias - Integumentary Integumentary: Denies pruritus, Denies rash - Neurological Neurological: Denies numbness, Denies weakness - Psychiatric Psychiatric: Denies anxiety, Denies depression - Endocrine Endocrine: Denies fatigue, Denies weight change Past Medical History Past Medical History: Asthma, Heart Failure, COPD, GERD/Reflux, Hypertension, Myocardial Infarction ([place]), Osteoarthritis (OA) Additional Past Medical History / Comment(s): hx migraines, TIA 2004- no effects, hiatal hernia,diverticulitis, kidney stones, neuropathy xiomara legs,heartcaths x3-no stents. Last Myocardial Infarction Date:: 2008 History of Any Multi-Drug Resistant Organisms: MRSA Date of last positivie culture/infection: 2010 MDRO Source:: cysts on buttocks Past Surgical History: Appendectomy, Cholecystectomy, Heart Catheterization, Joint Replacement, Tubal Ligation Additional Past Surgical History / Comment(s): lithotripsy, cystoscopy, xiomara knee replacements,xiomara cataracts Past Anesthesia/Blood Transfusion Reactions: Motion Sickness, Postoperative Nausea & Vomiting (PONV) Smoking Status: Former smoker - Past Family History Sister(s) Family Medical History: Cancer, Pulmonary Embolus Mother Family Medical History: Cancer, Pulmonary Embolus Son(s) Family Medical History: Cancer Additional Family Medical History / Comment(s): at age 50 with pancreatic cancer Medications and Allergies Home Medications Medication Instructions Recorded Confirmed Type Acetaminophen [Tylenol Arthritis] 1,300 mg PO TID PRN 04/21/18 03/06/23 History Aspirin [Adult Low Dose Aspirin EC] 81 mg PO BID 04/21/18 03/06/23 History Cholecalciferol [Vitamin D3] 3,000 unit PO DAILY 04/21/18 03/06/23 History Losartan [Cozaar] 25 mg PO QAM 04/21/18 03/06/23 History Omeprazole [PriLOSEC] 20 mg PO AC-BRKFST 04/21/18 03/06/23 History Sertraline HCl [Zoloft] 100 mg PO QAM 04/21/18 03/06/23 History Torsemide [Demadex] 20 mg PO TID 04/21/18 03/06/23 History Sulfamethox-Tmp 800-160Mg [Bactrim 1 tab PO Q12HR 06/23/22 03/06/23 History DS 800-160 mg] Albuterol Inhaler [Ventolin Hfa 1 - 2 puff INHALATION Q6H PRN 03/06/23 03/06/23 History Inhaler] Potassium Chloride ER [K-Dur 10] 10 meq PO TID 03/06/23 03/06/23 History Allergies Allergy/AdvReac Type Severity Reaction Status Date / Time adhesive tape Allergy Rash/Hives Verified 03/06/23 09:26 atorvastatin [From Lipitor] Allergy severe Verified 03/06/23 09:26 cramping in lower legs lisinopril Allergy Cough Verified 03/06/23 09:26 Surgical - Exam - General well developed, well nourished, no distress - Eyes normal ocular movement, no icteric - ENT no hearing loss, no congestion - Neck no masses, trachea midline - Respiratory normal respiratory effort, clear to auscultation - Abdomen Abdomen: soft, non tender, no guarding, no rigid, no rebound - Integumentary no rash, no abnormal pigmentation - Neurologic no disoriented, no combative - Psychiatric oriented to time, oriented to person, oriented to place, speech is normal, memory intact Results - Imaging CT scan - abdomen: report reviewed, image reviewed CT scan - pelvis: report reviewed, image reviewed Assessment and Plan Assessment: Impression: right renal stones. R uti, multiple medical comorbidities, Plan Right ureteroscopy with laser lithotripsy and possible stent placement.
[~2023-03-11 05:54] MED LIST changes: -DEXAMETHASONE SOD PHOSPHATE 4 MG/ML 1 ML VIAL IV ONE; -HYDROmorphone 0.5 MG/0.5 ML SYRINGE IVP PRN; -ONDANSETRON 4 MG/2 ML VIAL IVP ONE
[2023-03-11] MEDS ORDERED: DEXAMETHASONE SOD PHOSPHATE 4 MG/ML 1 ML VIAL IV ONE (06:02)
[2023-03-11] MEDS ORDERED: LIDOCAINE 1% (10MG/ML) FOR IV START INTRADERMA PRN (06:02)
[2023-03-11] MEDS ORDERED: MIDAZOLAM 2 MG/2 ML VIAL IV PRN (06:02)
[2023-03-11] MEDS ORDERED: LACTATED RINGERS 1,000 ML IV SCH (06:02)
[2023-03-11] MEDS ORDERED: ONDANSETRON 4 MG/2 ML VIAL IVP ONE (06:02)
[2023-03-11] MEDS ORDERED: HYDROmorphone 0.5 MG/0.5 ML SYRINGE IVP PRN (07:00)
[2023-03-11] MEDS ORDERED: SUCCINYLCHOLINE CHLORIDE 200 MG/10 ML VIAL IV ONE (07:15)
[2023-03-11] MEDS ORDERED: PROPOFOL 10 MG/ML 20 ML VIAL IV ONE (07:15)
[2023-03-11] MEDS ORDERED: MIDAZOLAM 2 MG/2 ML VIAL ONE (07:15)
[2023-03-11] MEDS ORDERED: PHENYLEPHRINE-0.9% NACL SYG 1,000 MCG/10 ML SYRINGE ONE (07:15)
[2023-03-11] MEDS ORDERED: fentaNYL (PF) 50 MCG/ML 2 ML AMP ONE (07:15)
--- NOTE | 2023-03-11 07:20 | XR ---
EXAMINATION TYPE: XR KUB DATE OF EXAM: 03/11/2023 6:13 AM INDICATION: Patient age:Female; 73 years old; Reason for study: N20.0 right renal stone; COMPARISON: CT 02/23/2023 TECHNIQUE: One radiographic view of the abdomen was obtained. FINDINGS: The bowel gas pattern is nonspecific without dilated loops of small or large bowel. There i s no evidence for organomegaly or pneumoperitoneum. The osseous structures are intact. 23 mm calcul us progressively kidney. Fecal material and gas are demonstrated throughout the colon and rectum. IMPRESSION: 1. Redemonstration of renal calculi. Right kidney measuring up to 23 mm. 2. Nonspecific bowel gas pattern without radiographic evidence for acute process.
[2023-03-11] MEDS ORDERED: LACTATED RINGERS 1,000 ML IV ONE (07:22)
[2023-03-11] MEDS ORDERED: IOPAMIDOL-370 100ML BTL MISCELLANE ONE (07:57)
[2023-03-11 09:03] VITALS: TEMP 97.1
--- NOTE | 2023-03-11 09:03 | P.OP ---
Date of Procedure: 03/11/23 Preoperative Diagnosis: Right renal stone Postoperative Diagnosis: Same Procedure(s) Performed: Cystoscopy, right ureteroscopy with laser lithotripsy to 2 renal stones, stone basketing. Placement of 6 x 26 stent Anesthesia: SASHA Surgeon: Thanh Walden Estimated Blood Loss (ml): 0 Pathology: other (Stone) Condition: stable Disposition: PACU Indications for Procedure: Patient is 73. She has recurrent Proteus infection. She is to renal stones on the right side. Due to her severe morbid obesity the right ureteroscopy laser lithotripsy. She'll be a challenging percutaneous procedure and not a candidate for shockwave lithotripsy Description of Procedure: Patient brought to the operative suite. Given general anesthesia. Placed in lithotomy position with a sterile prep and drape him extreme care to her extremities. Cystoscopy Foroblique lens and 21-Serbian sheath identifies a normal urethra. Normal ureteral orifices. Normal bladder. An 035 wires passed up into the right renal pelvis. Over the wires passed a 66-68-Byharl reentry sheath into the proximal right ureter. The inner sheath and wire removed. I passed the flexible ureteroscope up the right renal pelvis. There is some a UPJ obstruction that requires dilation. I passed the flexible ureteroscope and identify the first large stone. With the laser probe, 275 , the stone is dusted into tiny fragments. I then going to the lower pole calyx and identify another stone which is also dusted. A stone basket the largest fragments to send to pathology. There are less than a millimeter. The wires and passed through the working sheath into the renal pelvis. The sheath is removed and over the wires passed a 6 x 26 double-J catheter that coils in the renal pelvis and the bladder. It will remain in one week. The patient is awake and returned recovery in good condition. She tolerated the procedure well be discharged home upon recovery.
--- NOTE | 2023-03-11 09:34 | FL ---
Intraoperative/procedural fluoroscopic services were provided. Total fluoroscopy time is 1 minute 25 seconds with a total of 5 submitted images to PACS. Please see the operative/procedural note for furt her details. DAP: 38.576 Gycm2
[2023-03-11 10:30] VITALS: BP 136/76; PULSE 78; RESP 18
== END 2023-03-11 11:14 | disposition home or self-care (01) ==
LOC: OR 05:54
PROVIDERS: ATTEND Urology
DX: N20.0 Calculus of kidney (principal); Z87.440 Personal history of urinary (tract) infections; I25.2 Old myocardial infarction; I11.0 Hypertensive heart disease with heart failure; I50.9 Heart failure, unspecified; J44.9 Chronic obstructive pulmonary disease, unspecified; K21.9 Gastro-esophageal reflux disease without esophagitis; G43.909 Migraine, unspecified, not intractable, without status migrainosus; N28.9 Disorder of kidney and ureter, unspecified; M19.90 Unspecified osteoarthritis, unspecified site; E66.01 Morbid (severe) obesity due to excess calories; Z68.44 Body mass index [BMI] 60.0-69.9, adult; Z86.73 Personal history of transient ischemic attack (TIA), and cerebral infarction without residual deficits; Z87.19 Personal history of other diseases of the digestive system; G62.9 Polyneuropathy, unspecified; Z98.890 Other specified postprocedural states; Z87.891 Personal history of nicotine dependence; Z79.1 Long term (current) use of non-steroidal anti-inflammatories (NSAID); Z79.2 Long term (current) use of antibiotics; Z79.51 Long term (current) use of inhaled steroids; Z79.82 Long term (current) use of aspirin; Z79.899 Other long term (current) drug therapy; Z91.048 Other nonmedicinal substance allergy status; Z88.8 Allergy status to other drugs, medicaments and biological substances
CPT/HCPCS: 52356; 82365; 74018; C1769; J2250; J0330; J1100; J2405; J3010; J1580; J0290; J2370; J2704; J1170; Q9967

== ENCOUNTER → 2023-04-09 | Outpatient (CLI) | payer MEDICARE ==
--- NOTE | 2023-04-09 08:26 | US ---
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 hydro/ pos sible hypoechoic lesion lower pole= 3.1 x 2.2 x 2.9 cm/ limited visualization Left Kidney: No evidence of hydro, limited views Bladder: Unable to visualize due to large pt body habitus There is a 1.7 cm calculus within this upper pole of the right kidney. Parapelvic cyst in the upper p ole of the right kidney measuring up to 3.7 cm. Hypoechoic 2.9 cm lesion within the inferior pole of the right kidney not consistent with a simple cyst. No hydronephrosis involving both kidneys. No left nephrolithiasis. No definitive left renal mass. Unable to visualize the urinary bladder due to patie nt's body habitus. IMPRESSION: Limited examination due to patient's body habitus. 1. No hydronephrosis. 2. Nonobstructive right renal calculus. 3. Right renal parapelvic cyst. 4. Right lower pole 2.7 hypoechoic lesion not consistent with a simple cyst. Further evaluation with CT or MR abdomen with and without IV contrast (renal mass protocol) is recommended.
== END | disposition home or self-care (01) ==
LOC: RADUSWWP 07:45
PROVIDERS: ATTEND Urology
DX: D41.01 Neoplasm of uncertain behavior of right kidney (principal); N20.0 Calculus of kidney; N28.1 Cyst of kidney, acquired; N28.89 Other specified disorders of kidney and ureter
CPT/HCPCS: 76770

== ENCOUNTER → 2023-07-15 | Outpatient (CLI) | payer MEDICARE ==
[2023-07-15 10:06] LABS: Amorphous Sediment,Urine Rare /hpf; Appearance,Urine Cloudy (Clear); Bacteria,Urine Rare /hpf; Bilirubin,Urine Negative (Negative); Blood,Urine Moderate (Negative); Color,Urine Light Yellow; Glucose,Urine (UA) Negative (Negative); Ketones,Urine Negative (Negative); Leukocyte Esterase,Urine Moderate (Negative); Mucus,Urine Rare /hpf; Nitrite,Urine Negative (Negative); PH, Urine 6.5 (5.0-8.0); Protein,Urine Trace (Negative); RBC,Urine 89 /hpf (0-5); Specific Gravity,Urine 1.019 (1.001-1.035); Squamous Epithelial Cell,Urine 6 /hpf (0-4); Urobilinogen,Urine <2.0 mg/dL (<2.0); WBC,Urine 8 /hpf (0-5)
[2023-07-15 16:17] LABS: Basophils # (A) 0.04 X 10*3/uL (0.00-0.10); Basophils % (A) 0.8 %; Eosinophils # (A) 0.18 X 10*3/uL (0.04-0.35); Eosinophils % (A) 3.5 %; HCT 40.7 % (37.2-46.3); HGB 12.6 g/dL (12.0-15.0); Lymphocytes # (A) 1.13 X 10*3/uL (0.90-5.00); Lymphocytes % (A) 21.7 %; MCH 26.1 pg (27.0-32.0); MCV 84.3 FL (80.0-97.0); Mean Platelet Volume 10.1 FL (9.5-12.2); Monocytes # (A) 0.36 X 10*3/uL (0.20-1.00); Monocytes % (A) 6.9 %; NRBC Per 100 WBC 0 X 10*3/uL (0.00-0.01); Neutrophils # (A) 3.48 X 10*3/uL (1.80-7.70); Neutrophils % (A) 66.9 %; Platelet Count 235 X 10*3/uL (140-440); RBC 4.83 X 10*6/uL (4.10-5.20); RDW 15.4 % (11.5-14.5)
[2023-07-15 16:22] LABS: ALT 20 U/L (8-44); AST 19 U/L (13-35); Albumin 4.2 g/dL (3.8-4.9); Albumin/Globulin Ratio 1.83 Ratio (1.60-3.17); Alkaline Phosphatase 98 U/L (41-126); BUN/Creat Ratio 18.64 Ratio (12.00-20.00); Blood Urea Nitrogen 20.5 mg/dL (9.0-27.0); Calcium 9.7 mg/dL (8.7-10.3); Carbon Dioxide 25.3 mmol/L (21.6-31.8); Chloride 103 mmol/L (96-109); Globulin 2.3 g/dL (1.6-3.3); Glucose 110 mg/dL (70-110); Potassium 4.5 mmol/L (3.5-5.5); Sodium 141 mmol/L (135-145); Total Bilirubin 0.4 mg/dL (0.3-1.2); Total Protein 6.5 g/dL (6.2-8.2)
== END | disposition home or self-care (01) ==
LOC: LABPAT 09:00
PROVIDERS: ATTEND Urology
DX: Z01.812 Encounter for preprocedural laboratory examination (principal); N20.0 Calculus of kidney; R31.29 Other microscopic hematuria
CPT/HCPCS: 80053; 81001; 85025; 87086

== ENCOUNTER 2023-07-22 06:32 | Day surgery (SDC) | payer MEDICARE ==
--- NOTE | 2023-07-20 20:37 | P.GSHP ---
History of Present Illness H&P Date: 07/20/23 73 yo female with recurrent uti with large right renal stones. She comes for a right pcnl the risks , complications and alternatives have been discussed. She has a bifid renal pelvis that may require two n tubes as she has sotnes in both the lower and upper pole. - Constitutional Constitutional: Denies chills, Denies fever - EENT Eyes: denies blurred vision, denies pain Ears, nose, mouth and throat: Denies headache, Denies sore throat - Cardiovascular Cardiovascular: Denies chest pain, Denies shortness of breath - Respiratory Respiratory: Denies cough, Denies 7 - Gastrointestinal Gastrointestinal: Denies abdominal pain, Denies diarrhea, Denies nausea, Denies vomiting - Genitourinary (Female) Genitourinary: Denies dysuria, Denies hematuria - Genitourinary (Male) Genitourinary: Denies dysuria, Denies hematuria - Musculoskeletal Musculoskeletal: Denies myalgias - Integumentary Integumentary: Denies pruritus, Denies rash - Neurological Neurological: Denies numbness, Denies weakness - Psychiatric Psychiatric: Denies anxiety, Denies depression - Endocrine Endocrine: Denies fatigue, Denies weight change Past Medical History Past Medical History: Asthma, COPD, CVA/TIA, GERD/Reflux, Hypertension, Myocardial Infarction ([place]), Osteoarthritis (OA) Additional Past Medical History / Comment(s): hx migraines, TIA 2004- no effects, hiatal hernia, recent diverticulitis, kidney stones, neuropathy xiomara legs, lymphedema to legs, Last Myocardial Infarction Date:: 2008 History of Any Multi-Drug Resistant Organisms: MRSA Date of last positivie culture/infection: 2010 MDRO Source:: cysts on buttocks Past Surgical History: Appendectomy, Cholecystectomy, Heart Catheterization, Joint Replacement, Tubal Ligation Additional Past Surgical History / Comment(s): lithotripsy, cystoscopy, xiomara knee replacements Past Anesthesia/Blood Transfusion Reactions: Motion Sickness, Postoperative Nausea & Vomiting (PONV) Smoking Status: Former smoker - Past Family History Sister(s) Family Medical History: Cancer, Pulmonary Embolus Mother Family Medical History: Cancer, Pulmonary Embolus Son(s) Family Medical History: Cancer Medications and Allergies Home Medications Medication Instructions Recorded Confirmed Type Acetaminophen [Tylenol Arthritis] 1,300 mg PO TID PRN 04/21/18 07/17/23 History Aspirin [Adult Low Dose Aspirin EC] 81 mg PO BID 04/21/18 07/17/23 History Cholecalciferol [Vitamin D3] 3,000 unit PO DAILY 04/21/18 07/17/23 History Losartan [Cozaar] 25 mg PO QAM 04/21/18 07/17/23 History Omeprazole [PriLOSEC] 20 mg PO AC-BRKFST 04/21/18 07/17/23 History Sertraline HCl [Zoloft] 100 mg PO QAM 04/21/18 07/17/23 History Torsemide [Demadex] 20 mg PO TID 04/21/18 07/17/23 History Albuterol Inhaler [Ventolin Hfa 1 - 2 puff INHALATION Q6H PRN 03/06/23 07/17/23 History Inhaler] Potassium Chloride ER [K-Dur 10] 10 meq PO TID 03/06/23 07/17/23 History Allergies Allergy/AdvReac Type Severity Reaction Status Date / Time adhesive tape Allergy Rash/Hives Verified 07/17/23 15:26 atorvastatin [From Lipitor] Allergy severe Verified 07/17/23 15:26 cramping in lower legs clobetasol Allergy Rash/Hives Verified 07/17/23 15:26 lisinopril Allergy Cough Verified 07/17/23 15:26 Surgical - Exam - General well developed, well nourished, no distress - Eyes normal ocular movement, no icteric - ENT no hearing loss, no congestion - Neck no masses, trachea midline - Respiratory normal respiratory effort, clear to auscultation - Abdomen Abdomen: soft, non tender, no guarding, no rigid, no rebound - Integumentary no rash, no abnormal pigmentation - Neurologic no disoriented, no combative - Psychiatric oriented to time, oriented to person, oriented to place, speech is normal, memory intact Results - Imaging CT scan - abdomen: report reviewed, image reviewed CT scan - pelvis: report reviewed, image reviewed Assessment and Plan Assessment: Impression: Right renal stones, large, infected. Multiple medical illnesses Plan: right PCNL
[2023-07-22] MEDS ORDERED: MIDAZOLAM 2 MG/2 ML VIAL IV PRN (06:38)
[2023-07-22] MEDS ORDERED: ONDANSETRON 4 MG/2 ML VIAL IVP ONE (06:38)
[2023-07-22] MEDS ORDERED: LIDOCAINE 1% (10MG/ML) FOR IV START INTRADERMA PRN (06:38)
[2023-07-22] MEDS ORDERED: HYDROmorphone 0.5 MG/0.5 ML SYRINGE IVP PRN (06:38)
[2023-07-22] MEDS: LACTATED RINGERS 1,000 ML IV SCH (07:55)
[2023-07-22] MEDS ORDERED: DEXAMETHASONE SOD PHOSPHATE 4 MG/ML 1 ML VIAL IVP ONE ×2 (07:56)
[2023-07-22] MEDS ORDERED: NEOSTIGMINE 1 MG/ML 10 ML VIAL ONE (08:34)
[2023-07-22] MEDS ORDERED: LIDOCAINE 1% INJ 10MG/ML (20 ML MDV) ONE (08:34)
[2023-07-22] MEDS ORDERED: PROPOFOL 10 MG/ML 20 ML VIAL IV ONE (08:34)
[2023-07-22] MEDS ORDERED: ONDANSETRON 4 MG/2 ML VIAL ONE (08:34)
[2023-07-22] MEDS ORDERED: ROCURONIUM 10 MG/ML (5 ML VIAL) IV ONE (08:34)
[2023-07-22] MEDS ORDERED: SUCCINYLCHOLINE CHLORIDE 200 MG/10 ML VIAL IV ONE (08:34)
[2023-07-22] MEDS ORDERED: fentaNYL (PF) 50 MCG/ML 2 ML AMP ONE (08:34)
[2023-07-22] MEDS ORDERED: MIDAZOLAM 2 MG/2 ML VIAL ONE (08:34)
[2023-07-22] MEDS ORDERED: GLYCOPYRROLATE 0.2 MG/ML 2 ML VIAL ONE (08:34)
[2023-07-22] MEDS ORDERED: IOPAMIDOL-370 100ML BTL MISCELLANE ONE (08:40)
[2023-07-22] MEDS ORDERED: HYDROmorphone PCA 10 MG/50 ML BAG IV PRN (11:03)
[2023-07-22] MEDS ORDERED: NALOXONE 0.4 MG/ML 1 ML VIAL IV PRN (11:03)
[2023-07-22] MEDS ORDERED: MAG HYDROX/AL HYDROX/SIMETH 30 ML CUP PO PRN (11:04)
[2023-07-22] MEDS ORDERED: ONDANSETRON 4 MG/2 ML VIAL IVP PRN (11:04)
[2023-07-22] MEDS ORDERED: ACETAMINOPHEN TAB 325 MG TAB PO PRN (11:04)
--- NOTE | 2023-07-22 11:10 | P.OP ---
Date of Procedure: 07/22/23 Preoperative Diagnosis: Right renal calculi large Postoperative Diagnosis: Same Procedure(s) Performed: Cystoscopy, placement of occluding balloon catheter right, right percutaneous nephrostomy (Dr. Walden) right percutaneous nephrostolithotomy with laser, placement of 12 J nephrostomy Anesthesia: SASHA Surgeon: Thanh Walden Estimated Blood Loss (ml): 100 Pathology: other (Stone) Condition: stable Disposition: PACU Indications for Procedure: The patient is 73. She is morbidly obese, 177 kg on 5 foot 3 frame. She has recurrent ear infections. She has 2 large stones in the right kidney. She comes for percutaneous nephrostolithotomy. this Patient's alternatives have been discussed Description of Procedure: Patient brought to the operating suite. On the transport gurney she's given a general anesthetic. She's placed in a frog position with a sterile prep and drape. Cystoscopy identifies a right ureteral orifice and intubate that with a 5-Faroese occluding balloon catheter. It is passed in the renal pelvis. It is secured to a 16-Faroese Albarado The patient is placed in a prone position with extreme care to airways and extremities. Dr. Walden performed percutaneous access to a right lower pole calyx and this will be dictated separately. I then dilate the tract to 30- Faroese and introduced the rigid sheath into the collecting system. I then introduced the rigid nephroscope and remove clot and stone from the lower pole calyx that floated into the UPJ. 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 I passed the flexible scope into the lower pole calyces and remove stone with basketing. The infundibula to the upper pole calyx is narrowed has to be dilated. I then pass a flexible nephroscope up into the upper pole collecting system and with the 272 laser microns probe the large right renal stone (greater than 2 cm) is removed. I basket any larger fragments. I irrigate the collecting system thoroughly. I introduced a 12 J nephrostomy. The patient is awakened and returned recovery room good condition. Blood loss is less than 100 mL. She tolerated procedure well.
--- NOTE | 2023-07-22 11:14 | P.PCN ---
Date of Procedure: 07/22/23 Preoperative Diagnosis: Right renal stones, large, bifid renal pelves Postoperative Diagnosis: Same Procedure(s) Performed: Percutaneous nephrostomy access to right lower pole calyx Anesthesia: ANDREEA Surgeon: Thanh Walden Indications for Procedure: The patient is 73. She has large stones in the upper and lower pole calyces of a bifid renal pelvis. The plan is percutaneous nephrostolithotomy right. We will start with a right upper pole. Description of Procedure: Patient brought to the operating suite. Previously she's been placed on the operating table in a prone position after cystoscopy and stent was placed. The right collecting system was filled with air. First attempt to perform access to the right upper pole calyx where the largest of the 2 stones lay. Unfortunately calyx overlies a rib. Several attempts failed to get into this right upper pole calyx I then approached right lower pole calyx. I passage even a needle into the co llecting system. I then pass a copious mandrel wire that passes down the ureter. Over the wires passed the 3-Ecuadorean sheath. I removed the scope wire and pass an 035 wire down into the ureter. I then advanced the sheath into the ureter and place an 035 Super Stiff wire down the ureter. I then dilate the track with 8 and 10 exchanged dilators. The inner dilator is removed and I passed a second wire down the ureter. Over the superstiff wire I then dilate the tract to 30-Ecuadorean and introduced a sheath into the collecting system.
--- NOTE | 2023-07-22 11:40 | FL ---
Intraoperative/procedural fluoroscopic services were provided. Total fluoroscopy time is 14.13 minute s with a total of 12 submitted images to PACS. Please see the operative/procedural note for further d etails. DAP: 855.16 Gycm2
[2023-07-22] MEDS: DEXTROSE 5%-0.45% NACL 1,000 ML IV SCH ×2 (13:21→21:47)
[2023-07-22] MEDS: TORSEMIDE 20 MG TAB PO SCH ×2 (15:48→21:42)
[2023-07-22] MEDS: POTASSIUM CHLORIDE ER 10 MEQ TAB.ER.PRT PO SCH ×2 (15:48→21:42)
[2023-07-23] MEDS: LACTATED RINGERS 1,000 ML IV SCH (05:54)
[2023-07-23] MEDS: PANTOPRAZOLE 40 MG TABLET PO SCH (06:43)
[2023-07-23] MEDS: DEXTROSE 5%-0.45% NACL 1,000 ML IV SCH ×2 (06:44→20:46)
[2023-07-23] MEDS: TORSEMIDE 20 MG TAB PO SCH ×3 (08:37→20:45)
[2023-07-23] MEDS: LOSARTAN 25 MG TAB PO SCH (08:37)
[2023-07-23] MEDS: POTASSIUM CHLORIDE ER 10 MEQ TAB.ER.PRT PO SCH ×3 (08:37→20:45)
[2023-07-23] MEDS: SERTRALINE 100 MG TAB PO SCH (08:37)
--- NOTE | 2023-07-23 12:38 | P.PN ---
Subjective Progress Note Date: 07/23/23 Principal diagnosis: POD #1, s/p right PCNL The patient reports lower abdominal/pelvic discomfort, which she attributes to the Albarado catheter. The nephrostomy tube is draining blood-tinged urine. The Albarado catheter is draining clear yellow urine. Objective - Vital Signs Vital signs: Vital Signs Temp 98.2 F 07/23/23 07:12 Pulse 76 07/23/23 08:00 Resp 18 07/23/23 08:00 BP 117/69 07/23/23 07:12 Pulse Ox 98 07/23/23 07:12 FiO2 Intake & Output 07/22/23 07/23/23 07/23/23 18:59 06:59 18:59 Intake Total 754 Output Total 1150 3625 35 Balance -396 -3625 -35 Weight 177.4 kg Intake: IV 754 Output: Drainage 1425 35 Right Medial Back 1425 35 Urine 1050 2200 Estimated Blood Loss 100 Other: Voiding Method Indwelling Catheter Indwelling Catheter Assessment and Plan Plan: - D/C Albarado - Continue analgesics as needed
[2023-07-23] MEDS ORDERED: HYDROmorphone 1 MG/ML 1 ML SYRINGE IVP PRN (20:50)
[2023-07-23] MEDS ORDERED: HYDROcodone/APAP 5-325MG 1 EACH TAB PO PRN (20:51)
[2023-07-24] MEDS: HYDROcodone/APAP 5-325MG 1 EACH TAB PO PRN ×2 (00:07→06:15)
[2023-07-24 02:28] VITALS: RESP 17
[2023-07-24] MEDS: DEXTROSE 5%-0.45% NACL 1,000 ML IV SCH (05:32)
[2023-07-24] MEDS: LACTATED RINGERS 1,000 ML IV SCH (05:32)
[2023-07-24] MEDS: PANTOPRAZOLE 40 MG TABLET PO SCH (06:15)
[2023-07-24 07:33] VITALS: BP 118/72; PULSE 69; TEMP 98.4
[2023-07-24] MEDS: SERTRALINE 100 MG TAB PO SCH (08:17)
[2023-07-24] MEDS: LOSARTAN 25 MG TAB PO SCH (08:17)
[2023-07-24] MEDS: POTASSIUM CHLORIDE ER 10 MEQ TAB.ER.PRT PO SCH (08:17)
[2023-07-24] MEDS: TORSEMIDE 20 MG TAB PO SCH (08:18)
--- NOTE | 2023-07-24 09:04 | P.DS ---
Providers Expected date of discharge: 07/24/23 Attending physician: Thanh Walden Primary care physician: Calin Mckee [facility] Course: On the day of admission, the patient underwent an uncomplicated right percutaneous nephrolithotomy (PCNL). The perioperative course was unremarkable. The patient remained afebrile with stable vital signs. On the first postoperative day, she reported pelvic discomfort. The Albarado catheter was removed. Her discomfort improved significantly, and she was feeling quite well at the time of discharge. The nephrostomy tube was draining blood-tinged urine. The abdomen was soft and non-tender. Procedures: Right PCNL on 07/22/2023. Patient Condition at Discharge: Good Plan - Discharge Summary Discharge Rx Participant: Yes New Discharge Prescriptions: New HYDROcodone/APAP 5-325MG [[place] 5-325] 1 - 2 tab PO Q4HR PRN #10 tab PRN Reason: Pain No Action Cholecalciferol [Vitamin D3] 3,000 unit PO DAILY Torsemide [Demadex] 20 mg PO TID Sertraline HCl [Zoloft] 100 mg PO QAM Omeprazole [PriLOSEC] 20 mg PO AC-BRKFST Losartan [Cozaar] 25 mg PO QAM Aspirin [Adult Low Dose Aspirin EC] 81 mg PO BID Acetaminophen [Tylenol Arthritis] 1,300 mg PO TID PRN PRN Reason: Pain Potassium Chloride ER [K-Dur 10] 10 meq PO TID Albuterol Inhaler [Ventolin Hfa Inhaler] 1 - 2 puff INHALATION Q6H PRN PRN Reason: sob Discharge Medication List Acetaminophen [Tylenol Arthritis] 1,300 mg PO TID PRN 04/21/18 [History] Aspirin [Adult Low Dose Aspirin EC] 81 mg PO BID 04/21/18 [History] Cholecalciferol [Vitamin D3] 3,000 unit PO DAILY 04/21/18 [History] Losartan [Cozaar] 25 mg PO QAM 04/21/18 [History] Omeprazole [PriLOSEC] 20 mg PO AC-BRKFST 04/21/18 [History] Sertraline HCl [Zoloft] 100 mg PO QAM 04/21/18 [History] Torsemide [Demadex] 20 mg PO TID 04/21/18 [History] Albuterol Inhaler [Ventolin Hfa Inhaler] 1 - 2 puff INHALATION Q6H PRN 03/06/23 [History] Potassium Chloride ER [K-Dur 10] 10 meq PO TID 03/06/23 [History] HYDROcodone/APAP 5-325MG [[place] 5-325] 1 - 2 tab PO Q4HR PRN #10 tab 07/24/23 [Rx] Follow up Appointment(s)/Referral(s): Thanh Walden MD [STAFF PHYSICIAN] - 07/27/23 Activity/Diet/Wound Care/Special Instructions: Discharge home with nephrostomy tube. Drink plenty of fluids. Avoid strenuous activity. Discharge Disposition: HOME SELF-CARE
== END 2023-07-24 12:06 | disposition home or self-care (01) ==
LOC: OR 06:32 → 4SSUR 12:41 → OR 07-24 12:06
PROVIDERS: ATTEND Urology
DX: N20.0 Calculus of kidney (principal); J44.9 Chronic obstructive pulmonary disease, unspecified; K21.9 Gastro-esophageal reflux disease without esophagitis; I10 Essential (primary) hypertension; I25.2 Old myocardial infarction; M19.90 Unspecified osteoarthritis, unspecified site; Z86.73 Personal history of transient ischemic attack (TIA), and cerebral infarction without residual deficits; Z90.49 Acquired absence of other specified parts of digestive tract; Z90.89 Acquired absence of other organs; Z96.653 Presence of artificial knee joint, bilateral; Z87.891 Personal history of nicotine dependence; Z79.82 Long term (current) use of aspirin; Z79.51 Long term (current) use of inhaled steroids; Z79.899 Other long term (current) drug therapy; Z88.8 Allergy status to other drugs, medicaments and biological substances
CPT/HCPCS: 82365; 50432; 50081; 52332; C1769 ×3; C2628; C1894; C1729; J1100; J2405; J1580; J0290; J1170 ×2; Q9967